=== PATIENT | male | born 1990 ===

== ENCOUNTER 2019-09-07 01:28 | Emergency (ER) | payer SELFPAY ==
[2019-09-07] MEDS ORDERED: ONDANSETRON 4 MG/2 ML VIAL ONE (02:37)
[2019-09-07] MEDS ORDERED: MORPHINE 4 MG/ML SYR ONE (02:37)
[2019-09-07] MEDS ORDERED: LIDOCAINE 1% MPF 30 ML VIAL ONE (02:41)
[2019-09-07 02:54] LABS: Absolute Lymphocytes (CBC) 2.2 K/uL (0.7-4.9); Basophils % 1.6 % (0-1.3); Hematocrit 40.5 % (39.6-49.0); Lymphocytes % 21.8 % (15.3-44.8); MPV 8.9 fL (7.6-11.3); RBC Red Blood Cell Count 4.98 M/uL (4.33-5.43)
[2019-09-07] MEDS ORDERED: FENTANYL CITR 100 MCG/2 ML ONE (02:56)
[2019-09-07 03:00] LABS: Potassium 3.5 mmol/L (3.5-5.1)
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
[2019-09-07 04:24] LABS: Barbiturates NEGATIVE (NEGATIVE); Benzodiazepines NEGATIVE (NEGATIVE); Cocaine NEGATIVE (NEGATIVE); METHAMPHETAM NEGATIVE (NEGATIVE); Methadone NEGATIVE (NEGATIVE); Opiates POSITIVE (NEGATIVE); Phencyclidine NEGATIVE (NEGATIVE); THC Cannibis POSITIVE (NEGATIVE)
[2019-09-07 05:01] VITALS: TEMP 97.2
[2019-09-07 05:04] VITALS: BP 127/71; O2SAT 100
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
[2019-09-07 10:28] LABS: Urine Blood TRACE (NEG); Urine Glucose NEGATIVE (NEG); Urine Protein NEGATIVE (NEG)
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
[2019-09-08] MEDS ORDERED: METHYLPREDNISOLONE 125 MG INJ ONE (04:33)
[2019-09-08] MEDS ORDERED: LEVALBUTEROL 1.25 MG/3 ML NEB ONE (04:34)
[2019-09-09] MEDS ORDERED: Ciprofloxacin 200mg IV 200 MG/100 ML IV.SOLN. IV ONE (01:41)
[2019-09-09] MEDS ORDERED: LIDOCAINE 1% MPF 5 ML VIAL ONE (14:53)
== END 2019-09-07 04:50 | disposition short-term general hospital (02) ==
LOC: ER 01:28
PROC: 0SS9XZZ Reposition Right Hip Joint, External Approach (ICD-10-PCS; principal; 2019-09-07)
DX: S32.441A Displaced fracture of posterior column [ilioischial] of right acetabulum, initial encounter for closed fracture (principal); S01.511A Laceration without foreign body of lip, initial encounter; S01.512A Laceration without foreign body of oral cavity, initial encounter; S01.311A Laceration without foreign body of right ear, initial encounter; S50.311A Abrasion of right elbow, initial encounter; S60.512A Abrasion of left hand, initial encounter; V49.40XA Driver injured in collision with unspecified motor vehicles in traffic accident, initial encounter
CPT/HCPCS: 36415; 70450; 70486; 71260; 72125; 74177; 76377; 80048; 80307; 80320; 81003; 82947; 85025; 86850; 86900; 86901; 96374; 96375; 99285; J2405; J3010; Q9967